=== PATIENT | male | born 1995 | race Caucasian/White ===

== ENCOUNTER 2017-07-14 09:23 | Emergency (ER) | payer SELFPAY ==
[2017-07-14] MEDS ORDERED: NS 0.9% 1000 ML* 1,000 ML IV ONE (09:35)
[2017-07-14] MEDS ORDERED: Ondansetron INJ* 2 MG/ML VIAL IV ONE (09:35)
[2017-07-14 10:04] LABS: ABS Basophils 0 10^3/ul (0-0.2); ABS Eosinophils 0.1 10^3/ul (0-0.6); ABS Lymphocytes 1.4 10^3/ul (1.0-4.8); ABS Monocytes 0.3 10^3/ul (0-0.8); ABS Neutrophils 2.8 10^3/ul (1.5-7.7); ABS Nucleated RBC 0 10^3/ul; Eosinophil % 1.5 % (0-6); Hematocrit 42 % (42-52); Hemoglobin 14.2 g/dl (14.0-18.0); Lymphocyte % 30.2 % (25-47); Mean Corpuscular HGB Conc 34 g/dl (31-36); Mean Corpuscular Hemoglobin 30 pg (27-31); Mean Corpuscular Volume 87 fL (80-94); Mean Platelet Volume 8.1 um3 (7.4-10.4); Nucleated Red Blood Cells % 0; Platelet Count 156 10^3/ul (150-450); Red Blood Count 4.79 10^6/ul (4.0-5.4); Red Cell Distribution Width 14 % (10.5-15); White Blood Count 4.7 10^3/ul (3.5-10.8)
[2017-07-14 10:11] LABS: INR 0.99 (0.77-1.02)
[2017-07-14 10:23] LABS: EGFR Non-African American 104.6 (>60)
[2017-07-14 12:24] LABS: Urine Appearance Clear; Urine Blood Negative (Negative); Urine Color Yellow; Urine Ketones Trace (Negative); Urine Protein Negative (Negative); Urine Specific Gravity 1.013 (1.010-1.030); Urine Urobilinogen Negative (Negative)
[2017-07-14 12:27] VITALS: BP 140/77
--- NOTE | 2017-07-14 18:51 | ED ---
Ping Adams Julia, scribed for Catherine Lin MD on 07/14/17 at 0933 . GI/ HPI - HPI Summary HPI Summary: This patient is a 21 year old M BIBA to [facility] with a chief complaint of rectal bleeding since this morning when he noticed orangeish blood in the toilet with a regular BM this morning. There has been no rectal bleeding since. Patient reports sudden lightheadedness and numbness in feet, and nausea after BM that is currently resolved. Patient denies previous similar symptoms. Pt denies abdominal pain, genitalia pain, CP, and SOB. Pt additionally reports intermittent ventral left arm pain for the past couple days that is currently resolved. - History of Current Complaint Time Seen by Provider: 07/14/17 09:25 Stated Complaint: POSSIBLE GI BLEED Hx Obtained From: Patient Onset/Duration: Started Hours Ago, Atraumatic, Resolved Timing: Constant Severity: Moderate Current Severity: None Pain Intensity: 0 Location of Pain: None Associated Signs and Symptoms: Positive: Bright Red Blood w/Stool, Lightheadedness. Negative: Chest Pain Aggravating Factor(s): Nothing Alleviating Factor(s): Nothing - Allergy/Home Medications Allergies/Adverse Reactions: Allergies Allergy/AdvReac Type Severity Reaction Status Date / Time LACTOSE Allergy GI Upset Uncoded 07/14/17 09:35 Home Medications: Home Medications NK [No Home Medications Reported] 07/14/17 [History Confirmed 07/14/17] PMH/Surg Hx/FS Hx/Imm Hx Previously Healthy: Yes Endocrine/Hematology History: Denies: Hx Diabetes Cardiovascular History: Denies: Hx Myocardial Infarction - Surgical History Surgery Procedure, Year, and Place: none - Family History Known Family History: Positive: Other - prostate CA father - Social History Occupation: Employed Full-time Lives: With Family - fiance Alcohol Use: None Substance Use Type: Reports: None Hx Tobacco Use: No Review of Systems Positive: Other - lightheaded ENT: Negative Negative: Chest Pain Negative: Shortness Of Breath Positive: Other - "orange" blood with stool. Negative: Abdominal Pain, Diarrhea Positive: no symptoms reported Musculoskeletal: Negative Skin: Negative Neurological: Other - tingling in feet Psychological: Normal All Other Systems Reviewed And Are Negative: Yes Physical Exam - Summary Physical Exam Summary: Appearance: mildly ill-appearing, no pain distress, Well-nourished Skin: Warm, color reflects adequate perfusion Head: Normal Head/Face inspection Eyes: Conjunctiva clear ENT: Normal inspection Neck: Supple, no nodes, no JVD. Respiratory: Lungs clear, Normal breath sounds, no respiratory distress Cardio: RRR, No murmur, pulses normal, brisk capillary refill Abdomen: soft, nontender, no masses, no organomegaly Bowel sounds: present Musculoskeletal: Strength Intact/ ROM intact. No calf tenderness. No edema. Psychological: Normal Neuro: Alert, muscle tone normal, no focal deficit Rectal: No internal or external hemorrhoids, no skin tears, fissures or fistulas, prostate is normal, brown stool sent for guaiac; Pts nurse, Joya, was present for exam Triage Information Reviewed: Yes Vital Signs Reviewed: Yes Diagnostics - Laboratory Result Diagrams: 07/14/17 09:50 07/14/17 09:50 Lab Statement: Any lab studies that have been ordered have been reviewed, and results considered in the medical decision making process. Re-Evaluation - Re-Evaluation 1 Re-Evaluation Time: 12:20 Change: Improved Comment: Pt is feeling better no pain, nausea, or further bleeding. GIGU Course/Dx - Course Course Of Treatment: Pt arrives via EMS due to blood with a BM this morning. He reports feeling lightheaded. Stool is sent for blood occult at 09:40; results are negative for blood. Aware of lactic acid of 2.1 at 10:25. Pt given IV fluids while in ED which should improve his lactic acid. There is no sign of continuing hemorrhage, ischemia or sepsis. Lab results are otherwise unremarkable. Pt is given Zofran IV and IV Fluids. - Diagnoses Provider Diagnoses: Rectal bleed, Hypomagnesemia, Elevated lactic acid level Discharge - Sign-Out/Discharge Documenting (check all that apply): Discharge - Discharge Plan Condition: Stable Disposition: HOME Patient Education Materials: Rectal Bleeding (ED) Referrals: Harlan Zhang MD [Primary Care Provider] - 2 Days (Follow up with your primary care physician regarding your visit today. ) Additional Instructions: We have given you a copy of your labs that were done in the ER today. You do not have any anemia, or any excessive bleeding tendencies. The rectal exam that I did was normal, and the stool from that exam did not show any blood, so we do not think you are having continued internal bleeding. Follow up with Dr. Zhang. Call for an appointment in the next few days. Return to the ER if you have any new or worsening symptoms. Your urine sample was also normal, showing only ketones, indicating mild dehydration. - Billing Disposition and Condition Condition: STABLE Disposition: HOME The documentation as recorded by the Ping zazueta Julia accurately reflects the service I personally performed and the decisions made by me, Catherine Lin MD.
== END 2017-07-14 13:05 | disposition home or self-care (01) ==
LOC: ED 09:23
DX: K62.5 Hemorrhage of anus and rectum (principal); E83.42 Hypomagnesemia; R74.0 Nonspecific elevation of levels of transaminase and lactic acid dehydrogenase [LDH]
CPT/HCPCS: 36415; 80053; 81003; 82150; 82272; 82550; 83605; 83690; 83735; 85025; 85610; 86140; 96360; 96374; 99282

== ENCOUNTER 2017-10-15 16:25 | Emergency (ER) | payer SELFPAY ==
[2017-10-15 16:45] VITALS: BP 143/80
--- NOTE | 2017-10-15 17:14 | UC ---
Upper Extremity HPI - HPI Summary HPI Summary: 200 lb machine landed on R hand (palm up) approx 1 h ago at work. hand painful, cut skin - History of Current Complaint Chief Complaint: UCUpperExtremity Stated Complaint: HAND INJURY Time Seen by Provider: 10/15/17 17:08 Hx Obtained From: Patient Onset/Duration: Sudden Onset Severity Initially: Moderate Severity Currently: Moderate Pain Intensity: 8 Location Of Pain: Is Discrete @ - R palm Character: Throbbing, Stiffness Aggravating Factor(s): Movement Alleviating Factor(s): Ice, Rest Associated Signs And Symptoms: Positive: Swelling - Allergies/Home Medications Allergies/Adverse Reactions: Allergies Allergy/AdvReac Type Severity Reaction Status Date / Time LACTOSE Allergy GI Upset Uncoded 10/15/17 16:47 PMH/Surg Hx/FS Hx/Imm Hx Previously Healthy: Yes - Surgical History Surgical History: Yes Surgery Procedure, Year, and Place: wisdom teeth extracted - Family History Known Family History: Positive: None, Other - prostate CA father Negative: Hypertension - Social History Occupation: Employed Full-time Lives: With Family Alcohol Use: None Substance Use Type: None Smoking Status (MU): Never Smoked Tobacco Review of Systems Constitutional: Negative Skin: Other - lac Respiratory: Negative Cardiovascular: Negative Musculoskeletal: Negative Neurological: Negative Psychological: Negative All Other Systems Reviewed And Are Negative: Yes Physical Exam Triage Information Reviewed: Yes Appearance: Well-Appearing, No Pain Distress, Well-Nourished Vital Signs: Initial Vital Signs Temp 98.0 F 10/15/17 16:39 Pulse 74 10/15/17 16:39 Resp 16 10/15/17 16:39 BP 143/80 10/15/17 16:39 Pulse Ox 100 10/15/17 16:39 Vital Signs Reviewed: Yes Respiratory Exam: Normal Cardiovascular Exam: Normal Cardiovascular: Positive: Pulses Normal, Brisk Capillary Refill Musculoskeletal: Positive: Strength Intact, ROM Intact Neurological Exam: Other - decreased sensation distal R 5th digit Psychological Exam: Normal Skin Exam: Other - V shaped laceration R palm Procedures - Laceration/Wound Repair 1 Location: upper extremity Description: Stellate Anesthesia: Local, 1.0% Length, Depth and Shape: V shaped lav 2 cm each side, depth: 5mm. width flap lac 6mm Betadine Prep?: No Irrigated w/ Saline (ccs): 30 Laceration/Wound Explored: clean Closure: Single Layer Suture Type: Nylon Number of Sutures: 8 Layer Closure?: No Sterile Dressing Applied?: Yes - with bacitracin Upper Extremity Course/Dx - Differential Dx/Diagnosis Differential Diagnosis/HQI/PQRI: Contusion, Fracture (Open), Laceration Provider Diagnoses: R palm laceration Discharge - Sign-Out/Discharge Documenting (check all that apply): Patient Departure - Discharge Plan Condition: Good Disposition: HOME Patient Education Materials: Laceration (ED) Referrals: Harlan Zhang MD [Primary Care Provider] - Additional Instructions: ice and elevate hand keep current dressing on until Monday, then remove, wash with warm soap and water. Look for signs of infection and return here if there is redness, swelling, or drainage apply thin spread of antibacterial ointment and clean bandage daily Suture removal 10 days - Billing Disposition and Condition Condition: GOOD Disposition: Home
[2017-10-15] MEDS ORDERED: Lidocaine 1% MPF* 2 ML VIAL INJ ONE (17:17)
[2017-10-15] MEDS ORDERED: Lidocaine 1% MDV 20 ML INJ ONE (17:20)
[2017-10-15] MEDS ORDERED: Lidocaine 1%* 5 ML VIAL ONE (17:23)
--- NOTE | 2017-10-15 17:27 | RAD ---
INDICATION: Pain following crush injury. Laceration at palmar aspect. COMPARISON: No relevant prior exams available on the [facility] for comparison. TECHNIQUE: AP, lateral, and oblique views RIGHT hand. REPORT AND IMPRESSION: #. Overlying bandage limits image quality. No conspicuous retained foreign body evident. Suggestion of soft tissue swelling and subcutaneous emphysema at the palmar aspect corresponding with region of reported laceration. Negative for fracture or malalignment.
== END 2017-10-15 18:15 | disposition home or self-care (01) ==
LOC: UCEAST 16:25
DX: Z91.011 Allergy to milk products (principal); S61.411A Laceration without foreign body of right hand, initial encounter; W31.9XXA Contact with unspecified machinery, initial encounter; Y92.9 Unspecified place or not applicable
CPT/HCPCS: 12001; 99211; G0463

== ENCOUNTER 2017-10-25 16:02 | Emergency (ER) | payer SELFPAY ==
[2017-10-25 16:25] VITALS: BP 120/74
--- NOTE | 2017-10-25 16:36 | UC ---
HPI Wound/Suture Re-check - HPI Summary HPI Summary: here for 8 sutures to removed from left hand --placed September-- - History Of Current Complaint Chief Complaint: UCSkin Stated Complaint: SUTURE REMOVAL Time Seen by Provider: 10/25/17 16:36 Hx Obtained From: Patient Onset/Duration: Sudden Onset, Resolved Pain Intensity: 0 Pain Scale Used: 0-10 Numeric - Allergies/Home Medications Allergies/Adverse Reactions: Allergies Allergy/AdvReac Type Severity Reaction Status Date / Time LACTOSE Allergy GI Upset Uncoded 10/25/17 16:25 PMH/Surg Hx/FS Hx/Imm Hx Previously Healthy: Yes - Surgical History Surgical History: Yes Surgery Procedure, Year, and Place: wisdom teeth extracted - Family History Known Family History: Positive: None, Other - prostate CA father Negative: Hypertension - Social History Occupation: Employed Full-time Lives: With Family Alcohol Use: None Substance Use Type: None Smoking Status (MU): Never Smoked Tobacco Review of Systems Constitutional: Negative Skin: Other - healing wound palm of right hand Eyes: Negative ENT: Negative Respiratory: Negative Cardiovascular: Negative Gastrointestinal: Negative Genitourinary: Negative Motor: Negative Neurovascular: Negative Musculoskeletal: Negative Neurological: Negative Psychological: Negative Is Patient Immunocompromised?: No All Other Systems Reviewed And Are Negative: Yes Physical Exam Triage Information Reviewed: Yes Appearance: Well-Appearing, No Pain Distress, Well-Nourished Vital Signs: Initial Vital Signs Temp 99.2 F 10/25/17 16:22 Pulse 79 10/25/17 16:22 Resp 16 10/25/17 16:22 BP 120/74 10/25/17 16:22 Pulse Ox 98 10/25/17 16:22 Vital Signs Reviewed: Yes Eye Exam: Normal Eyes: Positive: Conjunctiva Clear ENT Exam: Normal ENT: Positive: Normal ENT inspection, Hearing grossly normal. Negative: Trismus , Muffled voice, Hoarse voice Dental Exam: Normal Neck exam: Normal Neck: Positive: Supple, Nontender Respiratory Exam: Normal Respiratory: Positive: Chest non-tender, No respiratory distress, No accessory muscle use Cardiovascular Exam: Normal Cardiovascular: Positive: RRR, Pulses Normal, Brisk Capillary Refill Musculoskeletal Exam: Normal Musculoskeletal: Positive: Strength Intact, ROM Intact, No Edema Neurological Exam: Normal Neurological: Positive: Alert, Muscle Tone Normal Psychological Exam: Normal Skin Exam: Normal Skin: Positive: Other - healing wound palm of right hand Course/Dx - Course Course Of Treatment: tolerated suture removal well, steri strips applied, patient d/c to home follow with pcp prn - Differential Dx - Laceration/Wound Provider Diagnoses: suture removal right hand Discharge - Sign-Out/Discharge Documenting (check all that apply): Patient Departure - felt - Discharge Plan Condition: Stable Disposition: HOME Patient Education Materials: Steristrips (ED), Stitches Removal (ED) Referrals: Harlan Zhang MD [Primary Care Provider] - If Needed Additional Instructions: Per institutional requirements, I have reviewed the chart, however, I was not consulted specifically or made aware of this patient by the above midlevel provider. I did not personally evaluate, interact with , or disposition this patient. - Billing Disposition and Condition Condition: STABLE Disposition: Home
[2017-10-25] MEDS ORDERED: Benzoin Compound STICK TOPICAL ONE (16:41)
[2017-10-25] MEDS ORDERED: Benzoin Compound STICK ONE (16:43)
== END 2017-10-25 16:59 | disposition home or self-care (01) ==
LOC: UCEAST 16:02
DX: S61.411D Laceration without foreign body of right hand, subsequent encounter (principal); X58.XXXD Exposure to other specified factors, subsequent encounter